=== PATIENT | female | born 1975 | race Caucasian/White ===

== ENCOUNTER 2020-01-12 04:52 | Emergency (ER) | payer OTHER, MEDICAID, SELFPAY ==
[2020-01-12] VITALS (8 sets, daily range): BP systolic 104–133; BP diastolic 58–86; PULSE 95–130; RESP 18–24; TEMP 37.3–37.9; O2SAT 95–98
--- NOTE | 2020-01-12 05:01 | ED_ITS ---
HPI - General Adult General Chief complaint: Wound/Laceration Stated complaint: stepped on screw right foot yest now has fever Time Seen by Provider: 01/12/20 04:54 Source: patient Mode of arrival: Wheelchair Limitations: no limitations History of Present Illness HPI narrative: Patient is a 44-year-old female. She states that yesterday while wearing a pair of sandals she stepped on a screw that punctured the outside of her right foot. She states that the screen did go through the rubber portion of the sandal. She states she was actually poked with a screw 2 separate occasions. She went to her primary doctor who started her on clarithromycin. She states she has taken 2 doses of this antibiotic. Over the night she stated that she had a fairly sudden increase in fevers and chills and body aches. She is up-to-date on her tetanus. Came into the emergency department because of how she was feeling. Related Data Previous Rx's Medication Instructions Recorded levofloxacin [Levaquin] 750 mg PO DAILY 7 Days #7 tab 01/12/20 Allergies Allergy/AdvReac Type Severity Reaction Status Date / Time cephalexin [From Keflex] Allergy Intermediate Verified 01/12/20 05:10 Penicillins Allergy Intermediate Verified 01/12/20 05:10 sulfamoxole Allergy Verified 01/12/20 05:11 Review of Systems Constitutional Constitutional: Reports body ache(s), Reports chills, Reports fatigue and Reports fever(s) Cardiovascular Cardiovascular: Denies chest pain and Denies dyspnea Respiratory Respiratory: Denies dyspnea Gastrointestinal Gastrointestinal: Denies abdominal pain, Denies nausea and Denies vomiting Musculoskeletal Comments: Right foot pain Integumentary/Breasts Skin/Breast: Denies lesions and Denies rash Neurologic Neurologic: Denies behavioral changes Psychiatric Psychiatric: Denies behavioral changes Endocrine Endocrine: Reports fatigue Hematologic/Lymphatic Hematologic/Lymphatic: Denies easy bleeding and Denies easy bruising Allergic/Immunologic Allergic/Immunologic: Denies urticaria Patient History Medical History Asthma (Acute) Social History Smoking Status: Current every day smoker Exam Initial Vital Signs Initial Vital Signs: Vital Signs Temperature 100.3 F H 01/12/20 05:00 Pulse Rate 130 H 01/12/20 05:00 Respiratory Rate 24 01/12/20 05:00 Blood Pressure 133/86 01/12/20 05:00 Pulse Oximetry 96 01/12/20 05:00 Const General: cooperative and comfortable Limitations: mental status not altered HENMT Head: normal to inspection and normocephalic Resp Effort & Inspection: normal respiratory effort Cardio Rate: tachycardic Pulses: dorsalis pedis present on the right Skin Other: A small laceration to the lateral aspect of the right foot at the base of the 5th toe consistent with where she stated she sustained a puncture wound. There is a small amount of erythema. Slightly warm compared to the left foot however patient was wearing socks and slippers. Neuro Sensory Exam: no sensory deficits noted Extrem General: normal to inspection and capillary refill normal Psych Appearance: grossly normal and well kempt Course Orders Ordered: ED Orders 01/12/20 05:06 XR foot RT min 3V Stat 01/12/20 05:10 COVID19 -ED/INPAT/OR/L&D Stat Complete Blood Count AUTO DIFF Stat Comprehensive Metabolic Panel Stat Lactate (Lactic Acid) Stat Procalcitonin Stat 01/12/20 05:35 Blood Culture Stat Discontinued Medications Acetaminophen (Tylenol) 975 mg PO NOW ONE Stop: 01/12/20 05:10 Last Admin: 01/12/20 05:18 Dose: 975 mg Documented by: MIRIAM Sodium Chloride (Normal Saline 0.9%) 1,000 mls @ 1,000 mls/hr IV BOLUS ONE Stop: 01/12/20 06:08 Last Infusion: 01/12/20 06:19 Dose: 0 mls/hr Documented by: Admin: 01/12/20 05:18 Dose: 1,000 mls/hr Documented by: MIRIAM Levofloxacin (Levaquin) 750 mg in 150 mls @ 100 mls/hr IV NOW ONE Stop: 01/12/20 07:04 Last Admin: 01/12/20 05:53 Dose: 100 mls/hr Documented by: JUSTIN Vital Signs Vital signs: Vital Signs - 8 hr 01/12/20 05:00 01/12/20 05:04 01/12/20 05:30 Temperature 100.3 F H Pulse Rate 130 H 112 H 105 H Respiratory Rate 24 Blood Pressure 133/86 Pulse Oximetry 96 97 98 01/12/20 06:00 01/12/20 06:30 01/12/20 06:39 Temperature Pulse Rate 101 H 103 H Respiratory Rate Blood Pressure 116/58 L Pulse Oximetry 97 95 01/12/20 06:44 Temperature 99.1 F Pulse Rate Respiratory Rate Blood Pressure Pulse Oximetry Medical Decision Making Lab Data Lab results reviewed: Yes I reviewed the patient's lab results. Result diagrams: 01/12/20 05:10 01/12/20 05:10 Labs: Lab Results 01/12/20 01/12/20 01/12/20 Range/Units 05:10 05:10 05:10 WBC 14.6 H (4.5-11.0) X10^3/uL RBC 4.53 (4.0-5.2) X10^6/uL Hgb 13.4 (12.0-16.0) g/dL Hct 39.4 (36-46) % MCV 87.0 (80-100) fL MCH 29.6 (26-34) PG MCHC 34.0 (30-36) % RDW 14.7 (11.6-14.8) % Plt Count 228 (150-400) X10^3/uL Neut % (Auto) 84.6 H (50-75) % Lymph % (Auto) 10.7 L (25-40) % [place] % (Auto) 3.5 (3-14) % Eos % (Auto) 0.7 L (2-4) % Baso % (Auto) 0.5 (0-2) % Neut # (Auto) 26700 H (6679-3316) /uL Lymph # (Auto) 1600 (6281-2948) /uL [place] # (Auto) 500 (0-900) /uL Eos # (Auto) 100 (0-450) /uL Baso # (Auto) 100 (0-100) /uL Sodium 136 L (137-145) mmol/L Potassium 4.3 (3.4-5.1) mmol/L Chloride 102 (98-107) mmol/L Carbon Dioxide 26 (22-32) mmol/L BUN 14 (7-17) mg/dL Creatinine 0.60 (0.52-1.04) mg/dL Estimated GFR > 60.0 (>60) mL/min BUN/Creatinine Ratio 23.3 H (6-22) Glucose 125 H (70-100) mg/dL Lactate (0.7-2.1) mmol/L Calcium 8.9 (8.4-10.2) mg/dL Total Bilirubin 0.6 (0.2-1.3) mg/dL AST 57 H (14-36) IU/L ALT 72 H (<35) IU/L Alkaline Phosphatase 129 H (38-126) U/L Total Protein 7.6 (6.3-8.2) g/dL Albumin 3.8 (3.5-5.0) g/dL Globulin 3.8 (1.7-4.1) g/dL Albumin/Globulin Ratio 1.0 (1.0-2.8) Procalcitonin < 0.05 (<0.5) ng/mL COVID-19 PCR (Negative) 01/12/20 01/12/20 Range/Units 05:10 05:10 WBC (4.5-11.0) X10^3/uL RBC (4.0-5.2) X10^6/uL Hgb (12.0-16.0) g/dL Hct (36-46) % MCV (80-100) fL MCH (26-34) PG MCHC (30-36) % RDW (11.6-14.8) % Plt Count (150-400) X10^3/uL Neut % (Auto) (50-75) % Lymph % (Auto) (25-40) % [place] % (Auto) (3-14) % Eos % (Auto) (2-4) % Baso % (Auto) (0-2) % Neut # (Auto) (6490-3437) /uL Lymph # (Auto) (3198-1771) /uL [place] # (Auto) (0-900) /uL Eos # (Auto) (0-450) /uL Baso # (Auto) (0-100) /uL Sodium (137-145) mmol/L Potassium (3.4-5.1) mmol/L Chloride (98-107) mmol/L Carbon Dioxide (22-32) mmol/L BUN (7-17) mg/dL Creatinine (0.52-1.04) mg/dL Estimated GFR (>60) mL/min BUN/Creatinine Ratio (6-22) Glucose (70-100) mg/dL Lactate 1.7 (0.7-2.1) mmol/L Calcium (8.4-10.2) mg/dL Total Bilirubin (0.2-1.3) mg/dL AST (14-36) IU/L ALT (<35) IU/L Alkaline Phosphatase (38-126) U/L Total Protein (6.3-8.2) g/dL Albumin (3.5-5.0) g/dL Globulin (1.7-4.1) g/dL Albumin/Globulin Ratio (1.0-2.8) Procalcitonin (<0.5) ng/mL COVID-19 PCR Negative (Negative) Imaging Data Extremity x-ray #1: Attestation: I personally reviewed and interpreted this imaging study as follows: My Impression: No fractures, no foreign bodies MDM Narrative Medical decision making narrative: She does have a leukocytosis and febrile and tachycardic however after fluids and antibiotics and Tylenol she was feeling much better. She ambulated to the bathroom. X-ray showed no foreign bodies or fractures. Potentially has slightly more redness warmth to the right foot narciso red to left but this is not definitive. I feel that the clarithromycin she was on his most likely not the appropriate antibiotic given her injury so will switch her to Levaquin. Was given 1st dose here in the ER. Sent home with prescription for remainder. Was given strict return precautions. She expressed understanding agreement. Discharge Plan Departure Patient Disposition: Home Clinical Impression: Laceration Instructions: DI for Puncture Wound Activity Restrictions/Additional Instructions: We are going to switch your antibiotic to 1 that is called Levaquin. This is a 1 time a day antibiotic. You were given your 1st dose here in the emergency department so the prescription that you were given today will start tomorrow 01/13/20. You can take Tylenol and/or ibuprofen for any fevers or body aches. Return to the emergency department for new or worsening symptoms. Prescriptions: New levofloxacin [Levaquin] 750 mg tablet 750 mg PO DAILY 7 Days Qty: 7 RF: 0
--- NOTE | 2020-01-12 05:06 | DI.RAD.S_ITS ---
PROCEDURE: XR FOOT RT MIN 3V INDICATIONS: stepped on screw puncture base of 5th toe TECHNIQUE: 3 views of the foot were acquired. COMPARISON: None. FINDINGS: Bones: No fractures or dislocations. No suspicious bony lesions. Soft tissues: No tibiotalar joint effusion. Achilles tendon appears normal. IMPRESSION: No fracture or foreign body seen. No osteomyelitis found. Dictated by: Evan Andersen M.D. on 01/12/2020 at 8:39 Approved by: Evan Andersen M.D. on 01/12/2020 at 8:39
[2020-01-12] MEDS: ACETAMINOPHEN 325 MG TABLET 975 MG PO (05:18)
[2020-01-12] MEDS: SODIUM CHLORIDE 0.9% 1,000 ML 1000 ML IV (05:18)
--- NOTE | 2020-01-12 05:26 | PC.NURSE ---
Pt states stepped on screw to right foot below 5th toe yesterday morning, saw PCP was started on antibiotics told to return to ER if develops fever, pt T 100.3 in triage.
[2020-01-12 05:40] LABS: Add Manual Diff / Slide Review NO; Basophils Absolute Auto 100 /uL (0-100); Basophils Percent Auto 0.5 % (0-2); Eosinophils Absolute Auto 100 /uL (0-450); Eosinophils Percent Auto 0.7 % (2-4); Hematocrit 39.4 % (36-46); Hemoglobin 13.4 g/dL (12.0-16.0); Lymphocytes Absolute Auto 1600 /uL (1100-4500); Lymphocytes Percent Auto 10.7 % (25-40); Mean Corpuscular Hemoglobin 29.6 PG (26-34); Monocytes Absolute Auto 500 /uL (0-900); Monocytes Percent Auto 3.5 % (3-14); Neutrophils Absolute Auto 12300 /uL (1500-7000); Neutrophils Percent Auto 84.6 % (50-75); Platelet Count 228 X10^3/uL (150-400); Red Blood Cell Count 4.53 X10^6/uL (4.0-5.2); Red Cell Distribution Width 14.7 % (11.6-14.8); White Blood Cell Count 14.6 X10^3/uL (4.5-11.0)
[2020-01-12] MEDS: levoFLOXacin 750 MG/150 ML PIGGYBACK 100 MG IV (05:53)
[2020-01-12 06:02] LABS: Lactate (Lactic Acid) 1.7 mmol/L (0.7-2.1)
[2020-01-12 06:03] LABS: Alanine Aminotransferase 72 IU/L (<35); Albumin 3.8 g/dL (3.5-5.0); Alkaline Phosphatase 129 U/L (38-126); Aspartate Aminotransferase 57 IU/L (14-36); BUN Creatinine Ratio 23.3 (6-22); Bilirubin Total 0.6 mg/dL (0.2-1.3); Blood Urea Nitrogen 14 mg/dL (7-17); Calcium 8.9 mg/dL (8.4-10.2); Carbon Dioxide 26 mmol/L (22-32); Chloride 102 mmol/L (98-107); Estimated Glomerular Filt Rate > 60.0 mL/min (>60); Globulin 3.8 g/dL (1.7-4.1); Glucose 125 mg/dL (70-100); HEMOLYSIS < 15 (0-50); Potassium 4.3 mmol/L (3.4-5.1); Sodium 136 mmol/L (137-145); Total Protein 7.6 g/dL (6.3-8.2)
[2020-01-12 06:12] LABS: Procalcitonin < 0.05 ng/mL (<0.5)
[2020-01-12 06:39] LABS: COVID19 -Nasal RAPID Negative (Negative)
--- NOTE | 2020-02-27 10:09 | PC.NURSE ---
Pt had infused 150ml of levaquin 750mg IV at 0705 on 01/12/20.
== END 2020-01-12 08:10 | disposition home or self-care (01) ==
PROVIDERS: Emergency Provider Emergency Medicine
DX: S91.311A Laceration without foreign body, right foot, initial encounter (principal); R50.9 Fever, unspecified; R00.0 Tachycardia, unspecified; W45.0XXA Nail entering through skin, initial encounter
CPT/HCPCS: 36415; 73630; 80053; 83605; 84145; 85025; 87040; 87635; 96365; 99284; J1956

== ENCOUNTER 2021-01-11 01:53 | Emergency (ER) | payer OTHER, MEDICAID, SELFPAY ==
[2021-01-11] VITALS (9 sets, daily range): BP systolic 147–172; BP diastolic 68–112; PULSE 75–91; RESP 18–21; TEMP 36.2; O2SAT 94–97
--- NOTE | 2021-01-11 02:03 | ED_ITS ---
HPI - General Adult <Ericka Mcdonnell MD - Last Filed: 01/20/21 02:04> General Chief complaint: Upper Respiratory Symptoms Stated complaint: X2 DAYS cough/sinus/headache Time Seen by Provider: 01/11/21 02:01 History of Present Illness HPI narrative: Woman with no specific medical history who denies a history of asthma but has an inhaler at home that she notes is relatively ineffective comes in with 2 days of productive cough, wheezing sinus congestion, no fevers, no nausea, vomiting, diarrhea, abdominal pain. She is COVID vaccinated. She denies chest pain, palpitations lower extremity edema or orthopnea. No headaches or specific neurologic complaints at this time. Related Data Previous Rx's Medication Instructions Recorded albuterol sulfate 90 mcg/actuation 2 puff INHALATION Q6H PRN #18 g 01/11/21 aerosol inhaler doxycycline hyclate 100 mg tablet 100 mg PO BID 7 Days #14 tab 01/15/21 Allergies Allergy/AdvReac Type Severity Reaction Status Date / Time cephalexin [From Keflex] Allergy Intermediate Verified 01/12/20 05:10 Penicillins Allergy Intermediate Verified 01/12/20 05:10 sulfamoxole Allergy Verified 01/12/20 05:11 <Yandel Dooley DO - Last Filed: 01/11/21 04:05> History of Present Illness HPI narrative: Woman with no specific medical history who has a history of asthma but has an inhaler at home that she notes is relatively ineffective comes in with 2 days of productive cough, wheezing sinus congestion, no fevers, no nausea, vomiting, diarrhea, abdominal pain. She is COVID vaccinated. She denies chest pain, palpitations lower extremity edema or orthopnea. No headaches or specific neurologic complaints at this time. Review of Systems <Ericka Mcdonnell MD - Last Filed: 01/20/21 02:04> Review of Systems Narrative: Remainder of complete review of systems is otherwise unremarkable except for that included in the HPI. Patient History <Ericka Mcdonnell MD - Last Filed: 01/20/21 02:04> Medical History (Updated 01/11/21 @ 03:32 by Yandel Dooley DO) Asthma Social History Smoking Status: Current every day smoker Smoking Status: Current every day smoker Substance Use Type: former substance user Exam <Ericka Mcdonnell MD - Last Filed: 01/20/21 02:04> Narrative Exam Narrative: General: Healthy appearing, obese, mild cough but Able to give a complete and coherent history. Well-nourished well-developed HEENT: Moist mucous membranes, normal sclera with reactive pupils, Neck: No JVD, supple Respiratory: Lungs with decreased air movement in the bases scattered rhonchi and moderate wheeze through upper lung vizcarra. She is able speak in full sentences and there is no accessory muscle use. Cardiac: Regular rate and rhythm no murmurs no bruits Abdomen: Soft, nontender, good bowel tones, no flank pain Skin: Warm and dry, no rashes Neurologic: Grossly neurologically intact with no obvious asymmetries or abnormalities Extremities: No trauma, well perfused, no lower extremity edema Psych: Cooperative, appropriate insight and affect Initial Vital Signs Initial Vital Signs: Vital Signs Temperature 97.1 F L 01/11/21 02:00 Pulse Rate 88 01/11/21 02:00 Respiratory Rate 01/11/21 02:00 Blood Pressure 168/112 H 01/11/21 02:00 Pulse Oximetry 97 01/11/21 02:00 <Yandel Dooley DO - Last Filed: 01/11/21 04:05> Initial Vital Signs Initial Vital Signs: Vital Signs Temperature 97.1 F L 01/11/21 02:00 Pulse Rate 88 01/11/21 02:00 Respiratory Rate 01/11/21 02:00 Blood Pressure 168/112 H 01/11/21 02:00 Pulse Oximetry 97 01/11/21 02:00 Course <Ericka Mcdonnell MD - Last Filed: 01/20/21 02:04> Orders Ordered: Discontinued Medications Albuterol (Albuterol 2.5 Mg/3 Ml Neb (Adult)) 2.5 mg INH NOW ONE Stop: 01/11/21 03:31 Last Admin: 01/11/21 03:42 Dose: 2.5 mg Documented by: SLIM Sodium Chloride (Normal Saline 0.9%) 1,000 mls @ 1,000 mls/hr IV BOLUS ONE Stop: 01/11/21 03:00 Last Admin: 01/11/21 02:11 Dose: 1,000 mls/hr Documented by: APAFFIE Methylprednisolone (Methylprednisolone 125 Mg/2 Ml Vial) 125 mg IV NOW ONE Stop: 01/11/21 02:02 Last Admin: 01/11/21 02:11 Dose: 125 mg Documented by: MIRIAM Vital Signs Vital signs: Vital Signs - 8 hr 01/11/21 02:00 01/11/21 02:18 01/11/21 02:20 Temperature 97.1 F L Pulse Rate 88 75 83 Respiratory Rate 21 Blood Pressure 168/112 H 151/73 H Pulse Oximetry 97 96 97 01/11/21 02:30 01/11/21 03:42 Temperature Pulse Rate 75 91 H Respiratory Rate 18 Blood Pressure 147/80 H Pulse Oximetry 96 97 <Yandel Dooley DO - Last Filed: 01/11/21 04:05> Orders Ordered: Discontinued Medications Albuterol (Albuterol 2.5 Mg/3 Ml Neb (Adult)) 2.5 mg INH NOW ONE Stop: 01/11/21 03:31 Last Admin: 01/11/21 03:42 Dose: 2.5 mg Documented by: SLIM Sodium Chloride (Normal Saline 0.9%) 1,000 mls @ 1,000 mls/hr IV BOLUS ONE Stop: 01/11/21 03:00 Last Admin: 01/11/21 02:11 Dose: 1,000 mls/hr Documented by: MIRIAM Methylprednisolone (Methylprednisolone 125 Mg/2 Ml Vial) 125 mg IV NOW ONE Stop: 01/11/21 02:02 Last Admin: 01/11/21 02:11 Dose: 125 mg Documented by: MIRIAM Vital Signs Vital signs: Vital Signs - 8 hr 01/11/21 02:00 01/11/21 02:18 01/11/21 02:20 Temperature 97.1 F L Pulse Rate 88 75 83 Respiratory Rate 21 Blood Pressure 168/112 H 151/73 H Pulse Oximetry 97 96 97 01/11/21 02:30 01/11/21 03:42 Temperature Pulse Rate 75 91 H Respiratory Rate 18 Blood Pressure 147/80 H Pulse Oximetry 96 97 Medical Decision Making <Ericka Mcdonnell MD - Last Filed: 01/20/21 02:04> Lab Data Result diagrams: 01/11/21 02:12 01/11/21 02:12 Labs: Lab Results 09/01/11/21 01/11/21 Range/Units 02:12 02:12 02:12 WBC 11.2 H (4.5-11.0) X10^3/uL RBC 4.83 (4.0-5.2) X10^6/uL Hgb 13.9 (12.0-16.0) g/dL Hct 42.0 (36-46) % MCV 86.8 (80-100) fL MCH 28.7 (26-34) PG MCHC 33.0 (30-36) % RDW 14.3 (11.6-14.8) % Plt Count 282 (150-400) X10^3/uL Neut % (Auto) 57.6 (50-75) % Lymph % (Auto) 34.2 (25-40) % [place] % (Auto) 4.9 (3-14) % Eos % (Auto) 2.6 (2-4) % Baso % (Auto) 0.7 (0-2) % Neut # (Auto) 6500 (8609-8210) /uL Lymph # (Auto) 3800 (3449-0607) /uL [place] # (Auto) 600 (0-900) /uL Eos # (Auto) 300 (0-450) /uL Baso # (Auto) 100 (0-100) /uL Sodium 141 (137-145) mmol/L Potassium 4.1 (3.4-5.1) mmol/L Chloride 105 (98-107) mmol/L Carbon Dioxide 30 (22-32) mmol/L BUN 16 (7-17) mg/dL Creatinine 0.64 (0.52-1.04) mg/dL Estimated GFR > 60.0 (>60) mL/min BUN/Creatinine Ratio 25.0 H (6-22) Glucose 93 (70-100) mg/dL Calcium 9.8 (8.4-10.2) mg/dL Total Bilirubin 0.2 (0.2-1.3) mg/dL AST 29 (14-36) IU/L ALT 38 H (<35) IU/L Alkaline Phosphatase 132 H (38-126) U/L Troponin I < 0.012 (0.01-0.034) ng/mL NT-Pro-B Natriuret Pep 41 (<125) pg/mL Total Protein 8.1 (6.3-8.2) g/dL Albumin 4.3 (3.5-5.0) g/dL Globulin 3.8 (1.7-4.1) g/dL Albumin/Globulin Ratio 1.1 (1.0-2.8) Chlamy pneumoniae PCR (Not Detect) Adenovirus (PCR) (Not Detect) B. pertussis DNA (PCR) (Not Detecte) B.parapertussis DNA PCR (Not Detecte) Coronavirus OC43 (PCR) (Not Detect) Coronavirus HKU1 (PCR) (Not Detect) Coronavirus 229E (PCR) (Not Detect) SARS-CoV-2 (PCR) (Not Detecte) Coronavirus NL63 (PCR) (Not Detect) Human Metapneumovir PCR (Not Detect) Influenza Type A (PCR) (Not Detect) Influenza Type B (PCR) (Not Detect) M. pneumoniae (PCR) (Not Detect) Parainfluenza 1 (PCR) (Not Detect) Parainfluenza 2 (PCR) (Not Detect) Parainfluenza 3 (PCR) (Not Detect) Parainfluenza 4 (PCR) (Not Detect) RSV (PCR) (Not Detect) Entero/Rhino (PCR) (Not Detect) 01/11/21 Range/Units 02:12 WBC (4.5-11.0) X10^3/uL RBC (4.0-5.2) X10^6/uL Hgb (12.0-16.0) g/dL Hct (36-46) % MCV (80-100) fL MCH (26-34) PG MCHC (30-36) % RDW (11.6-14.8) % Plt Count (150-400) X10^3/uL Neut % (Auto) (50-75) % Lymph % (Auto) (25-40) % [place] % (Auto) (3-14) % Eos % (Auto) (2-4) % Baso % (Auto) (0-2) % Neut # (Auto) (5362-1883) /uL Lymph # (Auto) (1095-1899) /uL [place] # (Auto) (0-900) /uL Eos # (Auto) (0-450) /uL Baso # (Auto) (0-100) /uL Sodium (137-145) mmol/L Potassium (3.4-5.1) mmol/L Chloride (98-107) mmol/L Carbon Dioxide (22-32) mmol/L BUN (7-17) mg/dL Creatinine (0.52-1.04) mg/dL Estimated GFR (>60) mL/min BUN/Creatinine Ratio (6-22) Glucose (70-100) mg/dL Calcium (8.4-10.2) mg/dL Total Bilirubin (0.2-1.3) mg/dL AST (14-36) IU/L ALT (<35) IU/L Alkaline Phosphatase (38-126) U/L Troponin I (0.01-0.034) ng/mL NT-Pro-B Natriuret Pep (<125) pg/mL Total Protein (6.3-8.2) g/dL Albumin (3.5-5.0) g/dL Globulin (1.7-4.1) g/dL Albumin/Globulin Ratio (1.0-2.8) Chlamy pneumoniae PCR Not detected (Not Detect) Adenovirus (PCR) Not detected (Not Detect) B. pertussis DNA (PCR) Not detected (Not Detecte) B.parapertussis DNA PCR Not detected (Not Detecte) Coronavirus OC43 (PCR) Not detected (Not Detect) Coronavirus HKU1 (PCR) Not detected (Not Detect) Coronavirus 229E (PCR) Not detected (Not Detect) SARS-CoV-2 (PCR) Not detected (Not Detecte) Coronavirus NL63 (PCR) Not detected (Not Detect) Human Metapneumovir PCR Not detected (Not Detect) Influenza Type A (PCR) Not detected (Not Detect) Influenza Type B (PCR) Not detected (Not Detect) M. pneumoniae (PCR) Not detected (Not Detect) Parainfluenza 1 (PCR) Not detected (Not Detect) Parainfluenza 2 (PCR) Not detected (Not Detect) Parainfluenza 3 (PCR) Not detected (Not Detect) Parainfluenza 4 (PCR) Not detected (Not Detect) RSV (PCR) Not detected (Not Detect) Entero/Rhino (PCR) Detected H (Not Detect) <Yandel Dooley DO - Last Filed: 01/11/21 04:05> Lab Data Lab results reviewed: Yes I reviewed the patient's lab results. Labs: Lab Results 01/11/21 01/11/21 01/11/21 Range/Units 02:12 02:12 02:12 WBC 11.2 H (4.5-11.0) X10^3/uL RBC 4.83 (4.0-5.2) X10^6/uL Hgb 13.9 (12.0-16.0) g/dL Hct 42.0 (36-46) % MCV 86.8 (80-100) fL MCH 28.7 (26-34) PG MCHC 33.0 (30-36) % RDW 14.3 (11.6-14.8) % Plt Count 282 (150-400) X10^3/uL Neut % (Auto) 57.6 (50-75) % Lymph % (Auto) 34.2 (25-40) % [place] % (Auto) 4.9 (3-14) % Eos % (Auto) 2.6 (2-4) % Baso % (Auto) 0.7 (0-2) % Neut # (Auto) 6500 (2793-8702) /uL Lymph # (Auto) 3800 (4388-4942) /uL [place] # (Auto) 600 (0-900) /uL Eos # (Auto) 300 (0-450) /uL Baso # (Auto) 100 (0-100) /uL Sodium 141 (137-145) mmol/L Potassium 4.1 (3.4-5.1) mmol/L Chloride 105 (98-107) mmol/L Carbon Dioxide 30 (22-32) mmol/L BUN 16 (7-17) mg/dL Creatinine 0.64 (0.52-1.04) mg/dL Estimated GFR > 60.0 (>60) mL/min BUN/Creatinine Ratio 25.0 H (6-22) Glucose 93 (70-100) mg/dL Calcium 9.8 (8.4-10.2) mg/dL Total Bilirubin 0.2 (0.2-1.3) mg/dL AST 29 (14-36) IU/L ALT 38 H (<35) IU/L Alkaline Phosphatase 132 H (38-126) U/L Troponin I < 0.012 (0.01-0.034) ng/mL NT-Pro-B Natriuret Pep 41 (<125) pg/mL Total Protein 8.1 (6.3-8.2) g/dL Albumin 4.3 (3.5-5.0) g/dL Globulin 3.8 (1.7-4.1) g/dL Albumin/Globulin Ratio 1.1 (1.0-2.8) Chlamy pneumoniae PCR (Not Detect) Adenovirus (PCR) (Not Detect) B. pertussis DNA (PCR) (Not Detecte) B.parapertussis DNA PCR (Not Detecte) Coronavirus OC43 (PCR) (Not Detect) Coronavirus HKU1 (PCR) (Not Detect) Coronavirus 229E (PCR) (Not Detect) SARS-CoV-2 (PCR) (Not Detecte) Coronavirus NL63 (PCR) (Not Detect) Human Metapneumovir PCR (Not Detect) Influenza Type A (PCR) (Not Detect) Influenza Type B (PCR) (Not Detect) M. pneumoniae (PCR) (Not Detect) Parainfluenza 1 (PCR) (Not Detect) Parainfluenza 2 (PCR) (Not Detect) Parainfluenza 3 (PCR) (Not Detect) Parainfluenza 4 (PCR) (Not Detect) RSV (PCR) (Not Detect) Entero/Rhino (PCR) (Not Detect) 01/11/21 Range/Units 02:12 WBC (4.5-11.0) X10^3/uL RBC (4.0-5.2) X10^6/uL Hgb (12.0-16.0) g/dL Hct (36-46) % MCV (80-100) fL MCH (26-34) PG MCHC (30-36) % RDW (11.6-14.8) % Plt Count (150-400) X10^3/uL Neut % (Auto) (50-75) % Lymph % (Auto) (25-40) % [place] % (Auto) (3-14) % Eos % (Auto) (2-4) % Baso % (Auto) (0-2) % Neut # (Auto) (2367-8990) /uL Lymph # (Auto) (0407-3474) /uL [place] # (Auto) (0-900) /uL Eos # (Auto) (0-450) /uL Baso # (Auto) (0-100) /uL Sodium (137-145) mmol/L Potassium (3.4-5.1) mmol/L Chloride (98-107) mmol/L Carbon Dioxide (22-32) mmol/L BUN (7-17) mg/dL Creatinine (0.52-1.04) mg/dL Estimated GFR (>60) mL/min BUN/Creatinine Ratio (6-22) Glucose (70-100) mg/dL Calcium (8.4-10.2) mg/dL Total Bilirubin (0.2-1.3) mg/dL AST (14-36) IU/L ALT (<35) IU/L Alkaline Phosphatase (38-126) U/L Troponin I (0.01-0.034) ng/mL NT-Pro-B Natriuret Pep (<125) pg/mL Total Protein (6.3-8.2) g/dL Albumin (3.5-5.0) g/dL Globulin (1.7-4.1) g/dL Albumin/Globulin Ratio (1.0-2.8) Chlamy pneumoniae PCR Not detected (Not Detect) Adenovirus (PCR) Not detected (Not Detect) B. pertussis DNA (PCR) Not detected (Not Detecte) B.parapertussis DNA PCR Not detected (Not Detecte) Coronavirus OC43 (PCR) Not detected (Not Detect) Coronavirus HKU1 (PCR) Not detected (Not Detect) Coronavirus 229E (PCR) Not detected (Not Detect) SARS-CoV-2 (PCR) Not detected (Not Detecte) Coronavirus NL63 (PCR) Not detected (Not Detect) Human Metapneumovir PCR Not detected (Not Detect) Influenza Type A (PCR) Not detected (Not Detect) Influenza Type B (PCR) Not detected (Not Detect) M. pneumoniae (PCR) Not detected (Not Detect) Parainfluenza 1 (PCR) Not detected (Not Detect) Parainfluenza 2 (PCR) Not detected (Not Detect) Parainfluenza 3 (PCR) Not detected (Not Detect) Parainfluenza 4 (PCR) Not detected (Not Detect) RSV (PCR) Not detected (Not Detect) Entero/Rhino (PCR) Detected H (Not Detect) Imaging Data Chest x-ray: Radiologist's Impression: No acute findings ECG Data Attestation: I personally reviewed and interpreted this ECG as follows: Interpretation: Sinus rhythm Ventricular rate is 72 Normal axis Normal QRS QTC No ST T wave changes MDM Narrative Medical decision making narrative: Chest x-ray is unremarkable, afebrile, is positive for rhino virus, she stated that she does have a history of asthma. Received a nebulizer treatment here in the ER and this improved her symptoms somewhat she was also given steroids. No indication for antibiotics. We were able to obtain a sputum culture. Will contact her if we need to start any antibiotics. She was given return precautions follow-up instructions. She expressed understanding and agreement with plan. Discharge Plan Departure Patient Disposition: Home Clinical Impression: Rhinovirus infection Instructions: DI for Viral Upper Respiratory Infection -- Adult Activity Restrictions/Additional Instructions: Your respiratory panel today was positive for a virus called rhino virus. This is a very common upper respiratory infection that can cause come cough and sometimes fevers. Individual's with asthma a can cause your asthma to flare up. You need to continue to take the albuterol inhaler as needed. This is a virus and so there is no indication for any antibiotics. There was a sputum culture that was obtained and is pending at the time of your discharge. We will contact you if we need to start you on any antibiotics. Contact your primary doctor for follow-up. Prescriptions: New albuterol sulfate 90 mcg/actuation HFA aerosol inhaler 2 puff inhalation Q6H PRN (Reason: shortness of breath or wheezing) Qty: 18 RF: 0 doxycycline hyclate 100 mg tablet 100 mg PO BID 7 Days Qty: 14 RF: 0 ED Sign-out <Ericka Mcdonnell MD - Last Filed: 01/20/21 02:04> [facility] I was immediately available in the department for consultation throughout this patient's visit. I agree with documentation as above. Ericka Mcdonnell MD
--- NOTE | 2021-01-11 02:03 | DI.RAD.S_ITS ---
PROCEDURE: XR CHEST 1V INDICATIONS: cough TECHNIQUE: One view of the chest was acquired. COMPARISON: None. FINDINGS: Surgical changes and devices: None. Lungs and pleura: Lungs are clear. No pleural effusions or pneumothorax. Mediastinum: Mediastinal contours appear normal. Heart size is normal. Bones and chest wall: No suspicious bony lesions. Overlying soft tissues appear unremarkable. IMPRESSION: No acute cardiopulmonary abnormalities or focal airspace disease. No significant discrepancy with the caustic cresylate shift superintendent radiology preliminary report. Dictated by: Henry Siddiqui M.D. on 01/11/2021 at 7:46 Approved by: Henry Siddiqui M.D. on 01/11/2021 at 7:46
[2021-01-11] MEDS: SODIUM CHLORIDE 0.9% 1,000 ML 1000 ML IV (02:11)
[2021-01-11] MEDS: methylPREDNISolone 125 MG/2 ML VIAL IV (02:11)
[2021-01-11 02:35] LABS: Add Manual Diff / Slide Review NO; Basophils Absolute Auto 100 /uL (0-100); Basophils Percent Auto 0.7 % (0-2); Eosinophils Absolute Auto 300 /uL (0-450); Eosinophils Percent Auto 2.6 % (2-4); Hemoglobin 13.9 g/dL (12.0-16.0); Lymphocytes Absolute Auto 3800 /uL (1100-4500); Lymphocytes Percent Auto 34.2 % (25-40); Mean Corpuscular Hemoglobin 28.7 PG (26-34); Mean Corpuscular Volume 86.8 fL (80-100); Monocytes Absolute Auto 600 /uL (0-900); Monocytes Percent Auto 4.9 % (3-14); Neutrophils Absolute Auto 6500 /uL (1500-7000); Neutrophils Percent Auto 57.6 % (50-75); Platelet Count 282 X10^3/uL (150-400); Red Blood Cell Count 4.83 X10^6/uL (4.0-5.2); Red Cell Distribution Width 14.3 % (11.6-14.8); White Blood Cell Count 11.2 X10^3/uL (4.5-11.0)
[2021-01-11 02:55] LABS: Alanine Aminotransferase 38 IU/L (<35); Albumin 4.3 g/dL (3.5-5.0); Albumin Globulin Ratio 1.1 (1.0-2.8); Alkaline Phosphatase 132 U/L (38-126); Aspartate Aminotransferase 29 IU/L (14-36); Bilirubin Total 0.2 mg/dL (0.2-1.3); Blood Urea Nitrogen 16 mg/dL (7-17); Calcium 9.8 mg/dL (8.4-10.2); Carbon Dioxide 30 mmol/L (22-32); Chloride 105 mmol/L (98-107); Estimated Glomerular Filt Rate > 60.0 mL/min (>60); Globulin 3.8 g/dL (1.7-4.1); Glucose 93 mg/dL (70-100); HEMOLYSIS < 15 (0-50); Potassium 4.1 mmol/L (3.4-5.1); Sodium 141 mmol/L (137-145); Total Protein 8.1 g/dL (6.3-8.2)
[2021-01-11 03:03] LABS: NT-proBNP (BNP-Adult 18+) 41 pg/mL (<125)
[2021-01-11 03:05] LABS: Troponin I < 0.012 ng/mL (0.01-0.034)
[2021-01-11 03:17] LABS: Adenovirus Not Detected (Not Detect); B. parapertussis Not Detected (Not Detecte); Bordetella pertussis Not Detected (Not Detecte); Chlamydophila pneumoniae Not Detected (Not Detect); Coronavirus 229E Not Detected (Not Detect); Coronavirus HKU1 Not Detected (Not Detect); Coronavirus NL 63 Not Detected (Not Detect); Coronavirus OC43 Not Detected (Not Detect); Human Metapneumovirus Not Detected (Not Detect); Human Rhinovirus/Enterovirus Detected (Not Detect); Influenza A Not Detected (Not Detect); Influenza B Not Detected (Not Detect); Mycoplasma pneumoniae Not Detected (Not Detect); Parainfluenza Virus 1 Not Detected (Not Detect); Parainfluenza Virus 2 Not Detected (Not Detect); Parainfluenza Virus 3 Not Detected (Not Detect); Parainfluenza Virus 4 Not Detected (Not Detect); Respiratory Syncytial Virus Not Detected (Not Detect); SARS- CoV-2 Not Detected (Not Detecte)
[2021-01-11] MEDS: ALBUTEROL 2.5 MG/3 ML NEB (ADULT) INH (03:42)
--- NOTE | 2021-01-19 18:51 | PC.NURSE ---
late note,at 0400 on 01/11/21 normal saline infusion ended.
== END 2021-01-11 04:14 | disposition home or self-care (01) ==
PROVIDERS: Emergency Medicine; Emergency Provider Emergency Medicine
DX: J06.9 Acute upper respiratory infection, unspecified (principal); B34.8 Other viral infections of unspecified site; Z20.822 Contact with and (suspected) exposure to COVID-19
CPT/HCPCS: 36415; 71045; 80053; 83880; 84484; 85025; 87070; 87077; 87186; 87205; 87633; 93005; 93010; 94640; 96361; 96374; 99284; J2930; J7613

== ENCOUNTER 2022-01-21 12:57 | Emergency (ER) | payer OTHER, MEDICAID, SELFPAY ==
[2022-01-21 13:31] VITALS: BP 126/74; PULSE 85; RESP 19; TEMP 36.6; O2SAT 96; BMI 43.0
--- NOTE | 2022-01-21 17:42 | PC.NURSE ---
called twice, once at 1658 and once at 1740. No answer.
== END 2022-01-21 17:43 | disposition left against medical advice (07) ==
PROVIDERS: Emergency Provider Emergency Medicine
CPT/HCPCS: 99281